=== PATIENT | male | born 2000 | race Hispanic/Latino ===

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

== ENCOUNTER 2020-03-29 08:54 | Emergency (ER) | payer MEDICAID | END 2020-03-29 09:15 | disposition home or self-care (01) | LOC: ERS 08:54 | DX: S00.01XA Abrasion of scalp, initial encounter (principal); J45.909 Unspecified asthma, uncomplicated; F31.9 Bipolar disorder, unspecified; F90.9 Attention-deficit hyperactivity disorder, unspecified type; V49.9XXA Car occupant (driver) (passenger) injured in unspecified traffic accident, initial encounter | CPT/HCPCS: 99284 ==

== ENCOUNTER 2022-09-19 03:56 | Inpatient (IN) | payer MEDICAID, OTHER ==
[2022-09-19] MEDS ORDERED: Rocuronium Bromide 10 MG/ML (10ML VIAL) ONE ×2 (04:01→04:03)
[2022-09-19] MEDS ORDERED: Boostrix 0.5 ML (Tdap) VIAL (>/=7 yrs of age) ONE (04:02)
[2022-09-19] MEDS ORDERED: Tranexamic Acid 1,000 MG/10 ML VIAL ONE (04:02)
[2022-09-19] MEDS ORDERED: EPINEPHrine 1 MG/10 ML Abboject SYRINGE ONE (04:03)
[2022-09-19] MEDS ORDERED: Sodium Bicarb 50 MEQ/50 ML Abboject 8.4% SYRINGE ONE (04:03)
[2022-09-19] MEDS ORDERED: CEFAZOLIN 2 GM VIAL ONE (04:06)
[2022-09-19] MEDS ORDERED: Calcium Chloride 1 GM/10 ML Abboject SYRINGE ONE (04:29)
[2022-09-19] MEDS ORDERED: FENTANYL 50 MCG/ML 1 ML VIAL ONE (04:48)
[2022-09-19 04:52] LABS: ALT (SGPT) 108 U/L (8-55); AST (SGOT) 97 U/L (5-34); Albumin 3.1 g/dL (3.5-5.0); Alkaline Phosphatase 66 U/L (40-110); BUN (Urea Nitrogen) 13 mg/dL (8.9-20.6); Calc. Creatinine Clearance 0 mL/min (70-130); Calcium 9.1 mg/dL (7.8-10.44); Chloride 113 mmol/L (98-107); Estimated GFR 78; Globulin 2.4 g/dL (2.4-3.5); Glucose 253 mg/dL (70-105); Potassium 3.7 mmol/L (3.5-5.1); Protein, Total 5.5 g/dL (6.0-8.3); Sodium 149 mmol/L (136-145)
[2022-09-19 04:53] LABS: INR-International Normal Ratio 2.1; Prothrombin Time 24.4 sec (12.0-14.7)
[2022-09-19 04:55] LABS: Bilirubin, Total 0.4 mg/dL (0.2-1.2); Carbon Dioxide Less than 8 mmol/L (22-29); PTT 72.6 sec (22.9-36.1)
[2022-09-19 04:59] LABS: Hemoglobin 14.4 g/dL (14.0-18.0); Mean Corpuscular HGB CONC 30.7 g/dL (32.0-36.0); Mean Corpuscular Hemoglobin 30.4 pg (27.0-31.0); Mean Corpuscular Volume 98.9 fl (78.0-98.0); Mean Platelet Volume 11.2 fL (7.4-10.4); Platelet Count 141 10x3/uL (130-400); RBC Distribution Width 13.5 % (11.5-14.5); Red Blood Cell (RBC) Count 4.76 mill/uL (4.70-6.10); White Blood Cell (WBC) Count 10.5 10x3/uL (4.8-10.8)
[2022-09-19 04:59] LABS: Bilirubin Negative (Negative); Blood, Urine Negative (Negative); Clarity Clear (Clear); Glucose, Urine (Dipstick) Normal (Negative); Ketone, Urine Negative (Negative); Leukocyte Negative Leu/uL (Negative); Nitrite Negative (Negative); Protein, Urine (Dipstick) 20 mg/dL (Neg-Trace); Specific Gravity, Urine 1.031 (1.002-1.036)
[2022-09-19] MEDS ORDERED: Fentanyl 250 MCG/5 ML VIAL ONE (04:59)
[2022-09-19] MEDS ORDERED: Midazolam HCl 2 mg/2 ml Vial ONE ×2 (04:59→07:09)
[2022-09-19 05:06] LABS: Calcium, Ionized (venous) 1.17 mmol/L (1.16-1.32); Chloride (VBG) 112 mmol/L (98-106); Hemoglobin (Hb) 16.8 g/dL (13.2-17.3); Potassium (VBG) 3.73 mmol/L (3.70-5.30); Sodium 149.5 mmol/L (133-146)
[2022-09-19 05:07] LABS: pH (venous) 6.73 (7.32-7.43)
[2022-09-19 05:08] LABS: Actual Bicarbonate (HCO3v) 5 mEq/L (22-28); Base Excess -31.8 mEq/L (-2.0 to +3.0)
[2022-09-19] MEDS ORDERED: Phenylephrine 10 MG/ML VIAL ONE ×2 (05:10→06:58)
[2022-09-19] MEDS ORDERED: ePHEDrine 50 MG/ML VIAL ONE (05:10)
[2022-09-19 05:23] LABS: Analyzer IN Cardio ER; Base Excess (BEa) -25.9 mEq/L (-2.0 to +3.0); CO2 Tension 57.9 mmHg (35.0-45.0); Calcium, Ionized (arterial) 1.01 mmol/L (1.12-1.30); Carboxyhemoglobin (COHb) 0.3 gm% (0.0-3.0); Hemoglobin (Hb) 11.9 g/dL (14.0-18.0); O2 Tension (PaO2), arterial 148.2 mmHg (80.0-100.0); Potassium - ABG Lab 4.51 mmol/L (3.70-5.30)
[2022-09-19 05:25] LABS: ALV-art Gradient 492.425 mmHg (0-20); Actual Bicarbonate (HCO3a) 8.7 mEq/L (22-28); Puncture Site LRA
[2022-09-19 05:29] LABS: Band 5 % (5-11); Lymphocytes 63 % (21-51); MDiff Complete? YES; Monocytes 5 % (0-10); Neutrophil 21 % (42-75); Reactive Lymphocytes 6 % (0-10)
[2022-09-19] MEDS ORDERED: Sodium Bicarb 50 MEQ/50 ML VIAL ONE (05:55)
[2022-09-19] MEDS ORDERED: Insulin Regular 300 UNITS/3 ML VIAL SC PRN (06:08)
[2022-09-19] MEDS ORDERED: TETANUS, DIPHTHERIA TOX,ADULT (TDVAX) 0.5 ML VIAL IM ONE (06:08)
[2022-09-19] MEDS ORDERED: Dextrose 50% Abboject 50 ML SYRINGE SLOW IVP PRN (06:08)
[2022-09-19] MEDS ORDERED: Dextrose 5% in Water 1,000 ML IV PRN (06:08)
[2022-09-19] MEDS ORDERED: Ventilator Sedation Protocol 1 EACH FS SCH (06:15)
[2022-09-19] MEDS ORDERED: Piperacillin/Tazobactam 3.375 GM in Sodium Chloride 0.9% 100 ML IVPB SCH ×2 (06:15→07:15)
[2022-09-19 06:20] LABS: #Lymphocytes 3.9 thou/uL (1.20-3.40); #Monocytes 0.2 thou/uL (0.11-0.59); #Neutrophils 5.9 thou/uL (1.40-6.50); %Basophils 0.1 % (0.0-1.0); %Eosinophils 9.4 % (0.0-10.0); %Lymphocytes 35.2 % (21.0-51.0); %Monocytes 1.9 % (0.0-10.0); %Neutrophils 53.4 % (42.0-75.0); Hemoglobin 11.6 g/dL (14.0-18.0); Mean Corpuscular HGB CONC 33.5 g/dL (32.0-36.0); Mean Corpuscular Volume 92.6 fl (78.0-98.0); Mean Platelet Volume 8.1 fL (7.4-10.4); Platelet Count 130 10x3/uL (130-400); RBC Distribution Width 13.8 % (11.5-14.5); Red Blood Cell (RBC) Count 3.74 mill/uL (4.70-6.10)
[2022-09-19 06:26] LABS: INR-International Normal Ratio 1.4; Prothrombin Time 17.7 sec (12.0-14.7)
[2022-09-19 06:27] LABS: PTT 44.6 sec (22.9-36.1)
[2022-09-19] MEDS ORDERED: Propofol 1,000 MG/100 ML VIAL IV PRN (06:30)
[2022-09-19] MEDS ORDERED: Morphine CADD 100 ML IVPB SCH (06:30)
[2022-09-19] MEDS ORDERED: Sodium Chloride 0.9% 1,000 ML IV SCH (06:30)
[2022-09-19 06:36] LABS: Anion Gap 18 mmol/L (10-20); BUN (Urea Nitrogen) 14 mg/dL (8.9-20.6); Calc. Creatinine Clearance 0 mL/min (70-130); Calcium 8.4 mg/dL (7.8-10.44); Carbon Dioxide 30 mmol/L (22-29); Chloride 106 mmol/L (98-107); Estimated GFR 75; Glucose 331 mg/dL (70-105); Sodium 150 mmol/L (136-145)
[2022-09-19 06:41] LABS: Amphetamine Not Detected (NotDetected); Barbiturates Screen Not Detected (NotDetected); Benzodiazepine Screen Not Detected (NotDetected); Cocaine Metabolite Screen Not Detected (NotDetected); Methadone Not Detected (NotDetected); Methamphetamine Not Detected (NotDetected); Opiate Screen Not Detected (NotDetected); Oxycodone Screen Not Detected (NotDetected); Phencyclidine (PCP) Not Detected (NotDetected); THC/Cannabinoid Screen Detected (NotDetected); Tricyclic Screen Not Detected (NotDetected)
[2022-09-19 06:47] LABS: Potassium 3.8 mmol/L (3.5-5.1)
[2022-09-19] MEDS ORDERED: HYDROmorphone 2 MG/ML VIAL ONE (07:09)
[2022-09-19] MEDS ORDERED: Albuterol Sulfate HFA (OR ONLY) ONE (07:20)
[2022-09-19] MEDS ORDERED: Lactated Ringer's 1,000 ML IV SCH ×2 (07:45→18:00)
[2022-09-19 08:24] LABS: Actual Bicarbonate (HCO3a) 27.9 mEq/L (22-28); Base Excess (BEa) 0.9 mEq/L (-2.0 to +3.0); CO2 Tension 54.7 mmHg (35.0-45.0); Calcium, Ionized (arterial) 1.21 mmol/L (1.12-1.30); Carboxyhemoglobin (COHb) 0.3 gm% (0.0-3.0); O2 Tension (PaO2), arterial 84.6 mmHg (80.0-100.0); pH, Arterial 7.33 (7.35-7.45)
[2022-09-19 08:26] LABS: ALV-art Gradient 274.825 mmHg (0-20); Potassium - ABG Lab 2.62 mmol/L (3.70-5.30); Puncture Site Arterial Line
[2022-09-19 08:36] LABS: Hemoglobin 12.6 g/dL (14.0-18.0); Mean Corpuscular HGB CONC 34.9 g/dL (32.0-36.0); Mean Corpuscular Hemoglobin 31.9 pg (27.0-31.0); Mean Corpuscular Volume 91.4 fl (78.0-98.0); Mean Platelet Volume 8.6 fL (7.4-10.4); Platelet Count 142 10x3/uL (130-400); RBC Distribution Width 13.6 % (11.5-14.5); Red Blood Cell (RBC) Count 3.95 mill/uL (4.70-6.10); White Blood Cell (WBC) Count 13.1 10x3/uL (4.8-10.8)
[2022-09-19] MEDS ORDERED: Albumin 5% 500 ML ONE (08:40)
[2022-09-19] MEDS ORDERED: Lactated Ringer's 500 ML IV SCH ×3 (08:45→15:30)
[2022-09-19 08:47] LABS: Lactic Acid 3.1 mmol/L (0.5-2.2)
[2022-09-19 08:52] LABS: Anion Gap 12 mmol/L (10-20); BUN (Urea Nitrogen) 14 mg/dL (8.9-20.6); Calc. Creatinine Clearance 0 mL/min (70-130); Calcium 8.4 mg/dL (7.8-10.44); Carbon Dioxide 24 mmol/L (22-29); Chloride 113 mmol/L (98-107); Estimated GFR 83; Glucose 95 mg/dL (70-105); Magnesium 2.6 mg/dL (1.6-2.6); Phosphorus 3.3 mg/dL (2.3-4.7); Potassium 2.7 mmol/L (3.5-5.1); Sodium 146 mmol/L (136-145)
[2022-09-19 08:59] LABS: Band 45 % (5-11); Lymphocytes 13 % (21-51); MDiff Complete? YES; Metamyelocyte 2 % (0-0); Monocytes 4 % (0-10); Neutrophil 30 % (42-75); Platelet Morphology Comment Appears Adequate; RBC Morphology Normal; Reactive Lymphocytes 6 % (0-10)
[2022-09-19] MEDS ORDERED: Morphine 4 MG/ML VIAL SLOW IVP PRN (09:21)
[2022-09-19] MEDS: Lactated Ringer's 1,000 ML IV SCH ×3 (09:26→21:35)
[2022-09-19] MEDS: Potassium Chloride 20 MEQ in Premix Bag 1 BAG IVPB SCH ×2 (09:50→11:00)
[2022-09-19] MEDS: Famotidine/PF 20 mg/2ml Vial SLOW IVP SCH ×2 (09:53→20:15)
[2022-09-19 10:24] LABS: Actual Bicarbonate (HCO3a) 27.2 mEq/L (22-28); Base Excess (BEa) 2.8 mEq/L (-2.0 to +3.0); Calcium, Ionized (arterial) 1.14 mmol/L (1.12-1.30); Carboxyhemoglobin (COHb) 0.3 gm% (0.0-3.0); Hemoglobin (Hb) 11.7 g/dL (14.0-18.0); O2 Tension (PaO2), arterial 246.5 mmHg (80.0-100.0); Potassium - ABG Lab 2.97 mmol/L (3.70-5.30); pH, Arterial 7.44 (7.35-7.45)
[2022-09-19 10:26] LABS: Puncture Site Arterial Line
[2022-09-19 11:44] LABS: SARS-CoV-2 NAA Rapid Test Not Detected (NotDetected)
[2022-09-19] MEDS ORDERED: FENTANYL 50 MCG/ML 1 ML VIAL SLOW IVP PRN (13:06)
[2022-09-19] MEDS: Piperacillin/Tazobactam 3.375 GM in Sodium Chloride 0.9% 100 ML IVPB SCH ×2 (13:33→20:15)
[2022-09-19 14:33] LABS: Hemoglobin 11.1 g/dL (14.0-18.0); Mean Corpuscular HGB CONC 36.3 g/dL (32.0-36.0); Mean Corpuscular Hemoglobin 32.9 pg (27.0-31.0); Mean Corpuscular Volume 90.7 fl (78.0-98.0); Mean Platelet Volume 8.7 fL (7.4-10.4); Platelet Count 107 10x3/uL (130-400); RBC Distribution Width 13.6 % (11.5-14.5); Red Blood Cell (RBC) Count 3.36 mill/uL (4.70-6.10); White Blood Cell (WBC) Count 11.4 10x3/uL (4.8-10.8)
[2022-09-19 14:43] LABS: Anion Gap 13 mmol/L (10-20); BUN (Urea Nitrogen) 13 mg/dL (8.9-20.6); Calc. Creatinine Clearance 0 mL/min (70-130); Carbon Dioxide 24 mmol/L (22-29); Chloride 113 mmol/L (98-107); Estimated GFR 83; Glucose 101 mg/dL (70-105); Phosphorus 2.9 mg/dL (2.3-4.7); Potassium 3.7 mmol/L (3.5-5.1); Sodium 146 mmol/L (136-145)
[2022-09-19 14:44] LABS: Magnesium 1.9 mg/dL (1.6-2.6)
[2022-09-19 14:53] LABS: Band 31 % (5-11); Lymphocytes 8 % (21-51); MDiff Complete? YES; Metamyelocyte 9 % (0-0); Monocytes 6 % (0-10); Myelocyte 2 % (0-0); Neutrophil 42 % (42-75); Platelet Morphology Comment Appears Decreased; Polychromasia SLIGHT = 2-3 cells (100X) (0-2/hpf); Reactive Lymphocytes 2 % (0-10)
[2022-09-19] MEDS ORDERED: Iopamidol-370 76% 500 ML 1 ML ONE (14:55)
[2022-09-19] MEDS: FENTANYL 50 MCG/ML 1 ML VIAL SLOW IVP PRN ×2 (15:35→20:15)
[2022-09-19] MEDS ORDERED: Magnesium 2 GM/50 ML(in water) 2 GM in Premix Bag 1 BAG IVPB SCH ×2 (16:45→21:00)
[2022-09-19] MEDS ORDERED: Hydrocortisone Sod Succ/PF 100 mg/2 ml Vial IVP SCH (16:45)
[2022-09-19] MEDS: Ondansetron PF 4 MG/2 ML Vial IVP PRN (16:51)
[2022-09-19 20:22] LABS: Hemoglobin 10.3 g/dL (14.0-18.0); Mean Corpuscular HGB CONC 35.2 g/dL (32.0-36.0); Mean Corpuscular Hemoglobin 31.9 pg (27.0-31.0); Mean Corpuscular Volume 90.6 fl (78.0-98.0); Mean Platelet Volume 9.5 fL (7.4-10.4); Platelet Count 97 10x3/uL (130-400); RBC Distribution Width 13.6 % (11.5-14.5); Red Blood Cell (RBC) Count 3.22 mill/uL (4.70-6.10); White Blood Cell (WBC) Count 10.5 10x3/uL (4.8-10.8)
[2022-09-19 20:31] LABS: INR-International Normal Ratio 1.5; Prothrombin Time 18.6 sec (12.0-14.7)
[2022-09-19 20:32] LABS: PTT 40.2 sec (22.9-36.1)
[2022-09-19 20:33] LABS: Anion Gap 12 mmol/L (10-20); BUN (Urea Nitrogen) 14 mg/dL (8.9-20.6); Calc. Creatinine Clearance 123 mL/min (70-130); Calcium 7.5 mg/dL (7.8-10.44); Carbon Dioxide 25 mmol/L (22-29); Chloride 111 mmol/L (98-107); Estimated GFR 76; Glucose 99 mg/dL (70-105); Magnesium 1.7 mg/dL (1.6-2.6); Potassium 4.2 mmol/L (3.5-5.1); Sodium 144 mmol/L (136-145)
[2022-09-19 20:34] LABS: Lactic Acid 4.4 mmol/L (0.5-2.2)
[2022-09-19 20:40] LABS: Band 31 % (5-11); Lymphocytes 9 % (21-51); MDiff Complete? YES; Monocytes 3 % (0-10); Neutrophil 57 % (42-75); Platelet Morphology Comment Appears Decreased
[2022-09-19 20:47] LABS: CK (CPK) 5727 U/L (30-200)
[2022-09-19] MEDS ORDERED: Midazolam In 0.9 % NaCl/PF 100 ML IVPB SCH (21:00)
[2022-09-19] MEDS ORDERED: Midazolam HCl 100 MG in Premix Bag 1 BAG IVPB SCH (21:00)
[2022-09-19] MEDS ORDERED: Midazolam HCl 100 MG in Admixture Fee 1 EACH IVPB SCH (21:00)
[2022-09-19] MEDS ORDERED: Calcium Chloride 13.6 MEQ in Sodium Chloride 0.9% 100 ML IVPB SCH (21:15)
[2022-09-19] MEDS: Hydrocortisone Sod Succ/PF 100 mg/2 ml Vial IVP SCH (21:30)
[2022-09-19] MEDS: Acetaminophen 650 MG Suppository PR PRN (22:45)
[2022-09-20] MEDS: Piperacillin/Tazobactam 3.375 GM in Sodium Chloride 0.9% 100 ML IVPB SCH ×3 (04:24→19:22)
[2022-09-20 05:38] LABS: Lactic Acid 3.3 mmol/L (0.5-2.2)
[2022-09-20 05:55] LABS: CK (CPK) 6555 U/L (30-200)
[2022-09-20 06:03] LABS: Anion Gap 12 mmol/L (10-20); BUN (Urea Nitrogen) 13 mg/dL (8.9-20.6); Band 41 % (5-11); Calc. Creatinine Clearance 133 mL/min (70-130); Carbon Dioxide 22 mmol/L (22-29); Chloride 111 mmol/L (98-107); Estimated GFR 82; Glucose 109 mg/dL (70-105); Lymphocytes 13 % (21-51); MDiff Complete? YES; Magnesium 1.9 mg/dL (1.6-2.6); Mean Corpuscular HGB CONC 35.1 g/dL (32.0-36.0); Mean Corpuscular Hemoglobin 32.5 pg (27.0-31.0); Mean Corpuscular Volume 92.5 fl (78.0-98.0); Monocytes 2 % (0-10); Neutrophil 44 % (42-75); Phosphorus 3.8 mg/dL (2.3-4.7); Platelet Count 84 10x3/uL (130-400); Platelet Morphology Comment Appears Decreased; Potassium 4.2 mmol/L (3.5-5.1); RBC Distribution Width 13.3 % (11.5-14.5); Red Blood Cell (RBC) Count 3.09 mill/uL (4.70-6.10); Sodium 141 mmol/L (136-145); White Blood Cell (WBC) Count 10.9 10x3/uL (4.8-10.8)
[2022-09-20] MEDS: Hydrocortisone Sod Succ/PF 100 mg/2 ml Vial IVP SCH ×3 (06:09→22:37)
[2022-09-20] MEDS: Lactated Ringer's 1,000 ML IV SCH ×4 (06:09→19:22)
[2022-09-20 07:13] LABS: Actual Bicarbonate (HCO3a) 22.5 mEq/L (22-28); Base Excess (BEa) -1.2 mEq/L (-2.0 to +3.0); CO2 Tension 33.7 mmHg (35.0-45.0); Calcium, Ionized (arterial) 1.12 mmol/L (1.12-1.30); Carboxyhemoglobin (COHb) 0.3 gm% (0.0-3.0); Hemoglobin (Hb) 10.5 g/dL (14.0-18.0); O2 Tension (PaO2), arterial 79.5 mmHg (80.0-100.0); Potassium - ABG Lab 3.97 mmol/L (3.70-5.30); pH, Arterial 7.44 (7.35-7.45)
[2022-09-20 07:27] LABS: ALV-art Gradient 163.575 mmHg (0-20); Puncture Site Arterial Line
[2022-09-20] MEDS: FENTANYL 50 MCG/ML 1 ML VIAL SLOW IVP PRN ×8 (07:55→23:40)
[2022-09-20] MEDS ORDERED: Magnesium 2 GM/50 ML(in water) 2 GM in Premix Bag 1 BAG IVPB SCH (08:15)
[2022-09-20] MEDS: Famotidine/PF 20 mg/2ml Vial SLOW IVP SCH ×2 (09:12→19:22)
[2022-09-20] MEDS ORDERED: Calcium Chloride 1 GM/10 ML Abboject SYRINGE IVP SCH (12:15)
[2022-09-20] MEDS: carBAMazepine 200 MG TAB PER TUBE SCH ×2 (14:34→21:03)
[2022-09-20 16:26] LABS: #Lymphocytes 1.2 thou/uL (1.20-3.40); #Monocytes 0.8 thou/uL (0.11-0.59); #Neutrophils 8.6 thou/uL (1.40-6.50); %Basophils 0.1 % (0.0-1.0); %Eosinophils 0.1 % (0.0-10.0); %Lymphocytes 11.2 % (21.0-51.0); %Monocytes 7.5 % (0.0-10.0); %Neutrophils 81.1 % (42.0-75.0); Hemoglobin 9.1 g/dL (14.0-18.0); Mean Corpuscular HGB CONC 35.2 g/dL (32.0-36.0); Mean Corpuscular Volume 93.6 fl (78.0-98.0); Mean Platelet Volume 10.1 fL (7.4-10.4); Platelet Count 62 10x3/uL (130-400); RBC Distribution Width 13.3 % (11.5-14.5); Red Blood Cell (RBC) Count 2.75 mill/uL (4.70-6.10); White Blood Cell (WBC) Count 10.6 10x3/uL (4.8-10.8)
[2022-09-20 16:51] LABS: Anion Gap 14 mmol/L (10-20); BUN (Urea Nitrogen) 13 mg/dL (8.9-20.6); Calc. Creatinine Clearance 137 mL/min (70-130); Calcium 8.7 mg/dL (7.8-10.44); Carbon Dioxide 17 mmol/L (22-29); Chloride 113 mmol/L (98-107); Estimated GFR 84; Glucose 98 mg/dL (70-105); Magnesium 2.3 mg/dL (1.6-2.6); Potassium 4.4 mmol/L (3.5-5.1); Sodium 140 mmol/L (136-145)
[2022-09-20] MEDS ORDERED: Sodium Chloride 0.9% 1,000 ML IV SCH (17:00)
[2022-09-20] MEDS: Acetaminophen 650 MG Suppository PR PRN (17:06)
[2022-09-20] MEDS: Ondansetron PF 4 MG/2 ML Vial IVP PRN (19:22)
[2022-09-20] MEDS: Acetaminophen 650 MG Suppository PR SCH (22:37)
[2022-09-21] MEDS: FENTANYL 50 MCG/ML 1 ML VIAL SLOW IVP PRN ×7 (00:28→16:47)
[2022-09-21] MEDS: Piperacillin/Tazobactam 3.375 GM in Sodium Chloride 0.9% 100 ML IVPB SCH ×3 (03:52→19:49)
[2022-09-21] MEDS: Lactated Ringer's 1,000 ML IV SCH ×4 (03:54→19:50)
[2022-09-21 05:14] LABS: Lactic Acid 2.3 mmol/L (0.5-2.2)
[2022-09-21 05:23] LABS: ALT (SGPT) 1176 U/L (8-55); AST (SGOT) 685 U/L (5-34); Albumin 2.7 g/dL (3.5-5.0); Alkaline Phosphatase 33 U/L (40-110); Anion Gap 13 mmol/L (10-20); BUN (Urea Nitrogen) 12 mg/dL (8.9-20.6); CK (CPK) 3690 U/L (30-200); Calc. Creatinine Clearance 147 mL/min (70-130); Calcium 8.6 mg/dL (7.8-10.44); Carbon Dioxide 20 mmol/L (22-29); Chloride 110 mmol/L (98-107); Estimated GFR 92; Globulin 2.4 g/dL (2.4-3.5); Glucose 115 mg/dL (70-105); Magnesium 2.2 mg/dL (1.6-2.6); Potassium 4.7 mmol/L (3.5-5.1); Protein, Total 5.1 g/dL (6.0-8.3); Sodium 138 mmol/L (136-145)
[2022-09-21] MEDS: Hydrocortisone Sod Succ/PF 100 mg/2 ml Vial IVP SCH ×3 (05:31→18:18)
[2022-09-21] MEDS: Acetaminophen 650 MG Suppository PR SCH (05:41)
[2022-09-21] MEDS: Famotidine/PF 20 mg/2ml Vial SLOW IVP SCH ×2 (07:49→19:49)
[2022-09-21 08:26] LABS: Actual Bicarbonate (HCO3a) 22.1 mEq/L (22-28); Base Excess (BEa) -0.9 mEq/L (-2.0 to +3.0); CO2 Tension 30.4 mmHg (35.0-45.0); Carboxyhemoglobin (COHb) 0.3 gm% (0.0-3.0); Hemoglobin (Hb) 9.2 g/dL (14.0-18.0); O2 Tension (PaO2), arterial 148.4 mmHg (80.0-100.0); Potassium - ABG Lab 3.96 mmol/L (3.70-5.30); pH, Arterial 7.48 (7.35-7.45)
[2022-09-21 08:33] LABS: Puncture Site LRA
[2022-09-21 09:07] LABS: INR-International Normal Ratio 1.2; PTT 29.1 sec (22.9-36.1); Prothrombin Time 16.1 sec (12.0-14.7)
[2022-09-21] MEDS ORDERED: Midazolam HCl 5 mg/5 ml Vial ONE (10:12)
[2022-09-21] MEDS ORDERED: Fentanyl 250 MCG/5 ML VIAL ONE (10:12)
[2022-09-21 10:35] LABS: Band 25 % (5-11); Hemoglobin 8.7 g/dL (14.0-18.0); Lymphocytes 10 % (21-51); MDiff Complete? YES; Mean Corpuscular Hemoglobin 31.2 pg (27.0-31.0); Mean Corpuscular Volume 94.4 fl (78.0-98.0); Mean Platelet Volume 10.1 fL (7.4-10.4); Monocytes 8 % (0-10); Neutrophil 56 % (42-75); Platelet Count 87 10x3/uL (130-400); Platelet Morphology Comment Appears Decreased; Polychromasia SLIGHT = 2-3 cells (100X) (0-2/hpf); RBC Distribution Width 13.1 % (11.5-14.5); Red Blood Cell (RBC) Count 2.78 mill/uL (4.70-6.10); White Blood Cell (WBC) Count 10.3 10x3/uL (4.8-10.8)
[2022-09-21] MEDS ORDERED: Rocuronium Bromide 10 MG/ML (10ML VIAL) ONE (10:45)
[2022-09-21] MEDS ORDERED: Dexamethasone 20 MG/5 ML VIAL ONE (10:45)
[2022-09-21] MEDS ORDERED: Ondansetron ORAL SOLN. 4 MG/5 ML UDCUP ONE (10:45)
[2022-09-21] MEDS ORDERED: Neomycin-Polymyxin 1 ML AMP ONE (11:20)
[2022-09-21 16:48] VITALS: BMI 38.9
[2022-09-21] MEDS ORDERED: diphenhydrAMINE 25 MG CAP PO PRN (17:39)
[2022-09-21] MEDS ORDERED: Zolpidem Tartrate 5 MG TAB PO PRN (17:39)
[2022-09-21] MEDS ORDERED: Promethazine HCl 25 MG/ML VIAL IM PRN (17:39)
[2022-09-21] MEDS ORDERED: Naloxone HCl 0.4 mg/ml Vial IV PRN (17:39)
[2022-09-21] MEDS ORDERED: diphenhydrAMINE 50 MG/ML VIAL IM PRN (17:39)
[2022-09-21] MEDS ORDERED: Communication Order-Pharmacy FS SCH (17:45)
[2022-09-21] MEDS: HYDROmorphone 10 mg/100 ml CADD IVPB PRN (18:19)
[2022-09-21] MEDS: Ketorolac Tromethamine 30 MG/ML VIAL IVP SCH ×2 (18:19→23:13)
[2022-09-21 19:55] LABS: Hemoglobin 10.3 g/dL (14.0-18.0); Mean Corpuscular HGB CONC 33.3 g/dL (32.0-36.0); Mean Corpuscular Hemoglobin 32.4 pg (27.0-31.0); Mean Corpuscular Volume 97.3 fl (78.0-98.0); Mean Platelet Volume 10.1 fL (7.4-10.4); Platelet Count 107 10x3/uL (130-400); RBC Distribution Width 13.4 % (11.5-14.5); Red Blood Cell (RBC) Count 3.17 mill/uL (4.70-6.10); White Blood Cell (WBC) Count 11.9 10x3/uL (4.8-10.8)
[2022-09-21 20:16] LABS: Band 28 % (5-11); Lymphocytes 7 % (21-51); MDiff Complete? YES; Monocytes 4 % (0-10); Neutrophil 61 % (42-75); Platelet Morphology Comment Appears Decreased; RBC Morphology Normal
[2022-09-21] MEDS ORDERED: Hydrocortisone Sod Succ/PF 100 mg/2 ml Vial IVP SCH (21:00)
[2022-09-21 21:50] LABS: Anion Gap 13 mmol/L (10-20); BUN (Urea Nitrogen) 12 mg/dL (8.9-20.6); Calc. Creatinine Clearance 196 mL/min (70-130); Calcium 8.3 mg/dL (7.8-10.44); Carbon Dioxide 19 mmol/L (22-29); Chloride 108 mmol/L (98-107); Estimated GFR 126; Glucose 123 mg/dL (70-105); Magnesium 1.8 mg/dL (1.6-2.6); Phosphorus 2.2 mg/dL (2.3-4.7); Potassium 4.1 mmol/L (3.5-5.1); Sodium 136 mmol/L (136-145)
[2022-09-21] MEDS ORDERED: Magnesium 2 GM/50 ML(in water) 2 GM in Premix Bag 1 BAG IVPB SCH (22:30)
[2022-09-21] MEDS ORDERED: Sodium Phosphate 30 MMOL in Sodium Chloride 0.9% 250 ML 250 ML IVPB SCH (22:45)
[2022-09-22] MEDS: diphenhydrAMINE 50 MG/ML VIAL IVP PRN (03:28)
[2022-09-22] MEDS: Piperacillin/Tazobactam 3.375 GM in Sodium Chloride 0.9% 100 ML IVPB SCH ×3 (03:28→22:51)
[2022-09-22] MEDS: Lactated Ringer's 1,000 ML IV SCH ×3 (04:22→17:11)
[2022-09-22 04:49] LABS: ALT (SGPT) 696 U/L (8-55); AST (SGOT) 208 U/L (5-34); Albumin 2.8 g/dL (3.5-5.0); Alkaline Phosphatase 39 U/L (40-110); Anion Gap 12 mmol/L (10-20); BUN (Urea Nitrogen) 13 mg/dL (8.9-20.6); Bilirubin, Total 1.1 mg/dL (0.2-1.2); CK (CPK) 2944 U/L (30-200); Calc. Creatinine Clearance 196 mL/min (70-130); Calcium 8.2 mg/dL (7.8-10.44); Carbon Dioxide 23 mmol/L (22-29); Chloride 109 mmol/L (98-107); Estimated GFR 126; Globulin 2.4 g/dL (2.4-3.5); Glucose 136 mg/dL (70-105); Magnesium 2.3 mg/dL (1.6-2.6); Phosphorus 2.3 mg/dL (2.3-4.7); Potassium 3.7 mmol/L (3.5-5.1); Protein, Total 5.2 g/dL (6.0-8.3); Sodium 140 mmol/L (136-145)
[2022-09-22 05:04] LABS: Band 25 % (5-11); Eosinophils 1 % (0-10); Hemoglobin 8.9 g/dL (14.0-18.0); Lymphocytes 8 % (21-51); MDiff Complete? YES; Mean Corpuscular HGB CONC 33.2 g/dL (32.0-36.0); Mean Corpuscular Hemoglobin 31.5 pg (27.0-31.0); Mean Corpuscular Volume 94.8 fl (78.0-98.0); Mean Platelet Volume 10.6 fL (7.4-10.4); Monocytes 6 % (0-10); Neutrophil 60 % (42-75); Platelet Count 112 10x3/uL (130-400); Platelet Morphology Comment Appears Decreased; RBC Distribution Width 13.1 % (11.5-14.5); Red Blood Cell (RBC) Count 2.81 mill/uL (4.70-6.10)
[2022-09-22] MEDS: Ketorolac Tromethamine 30 MG/ML VIAL IVP SCH ×3 (06:23→17:11)
[2022-09-22] MEDS ORDERED: Lactated Ringer's 1,000 ML IV SCH (08:15)
[2022-09-22] MEDS ORDERED: Potassium Phosphate 30 MMOL in Sodium Chloride 0.9% 250 ML 250 ML IVPB SCH (09:00)
[2022-09-22] MEDS: Divalproex Sodium 250 MG (DR) TAB PO SCH (09:11)
[2022-09-22] MEDS: risperiDONE 1 MG TAB PO SCH (09:11)
[2022-09-22] MEDS: Saccharomyces boulardii 250 MG CAP PO SCH (09:11)
[2022-09-22] MEDS: Famotidine/PF 20 mg/2ml Vial SLOW IVP SCH ×2 (09:11→22:51)
[2022-09-23] MEDS: Ketorolac Tromethamine 30 MG/ML VIAL IVP SCH ×4 (00:37→17:32)
[2022-09-23] MEDS: HYDROmorphone 10 mg/100 ml CADD IVPB PRN (04:36)
[2022-09-23] MEDS: Piperacillin/Tazobactam 3.375 GM in Sodium Chloride 0.9% 100 ML IVPB SCH ×3 (04:43→20:10)
[2022-09-23] MEDS: Lactated Ringer's 1,000 ML IV SCH ×3 (04:43→22:05)
[2022-09-23 06:24] LABS: Hemoglobin 8.7 g/dL (14.0-18.0); Mean Corpuscular HGB CONC 35.2 g/dL (32.0-36.0); Mean Corpuscular Hemoglobin 33.2 pg (27.0-31.0); Mean Corpuscular Volume 94.5 fl (78.0-98.0); Mean Platelet Volume 9.2 fL (7.4-10.4); Platelet Count 172 10x3/uL (130-400); RBC Distribution Width 13.4 % (11.5-14.5); Red Blood Cell (RBC) Count 2.62 mill/uL (4.70-6.10)
[2022-09-23 06:29] LABS: Lactic Acid 0.8 mmol/L (0.5-2.2)
[2022-09-23 06:34] LABS: ALT (SGPT) 419 U/L (8-55); AST (SGOT) 97 U/L (5-34); Albumin 2.8 g/dL (3.5-5.0); Alkaline Phosphatase 48 U/L (40-110); Bilirubin, Direct 0.5 mg/dL (0.1-0.3); Protein, Total 5.2 g/dL (6.0-8.3)
[2022-09-23 06:36] LABS: Anion Gap 14 mmol/L (10-20); BUN (Urea Nitrogen) 20 mg/dL (8.9-20.6); CK (CPK) 2655 U/L (30-200); Calc. Creatinine Clearance 218 mL/min (70-130); Calcium 8.3 mg/dL (7.8-10.44); Carbon Dioxide 24 mmol/L (22-29); Chloride 110 mmol/L (98-107); Estimated GFR 130; Glucose 106 mg/dL (70-105); Magnesium 2.2 mg/dL (1.6-2.6); Phosphorus 2.7 mg/dL (2.3-4.7); Potassium 3.4 mmol/L (3.5-5.1); Sodium 145 mmol/L (136-145)
[2022-09-23 06:49] LABS: Band 26 % (5-11); Lymphocytes 13 % (21-51); MDiff Complete? YES; Metamyelocyte 1 % (0-0); Monocytes 7 % (0-10); Myelocyte 7 % (0-0); Neutrophil 46 % (42-75); White Blood Cell (WBC) Count 12.8 10x3/uL (4.8-10.8)
[2022-09-23] MEDS ORDERED: Potassium Phosphate 30 MMOL in Sodium Chloride 0.9% 250 ML 250 ML IVPB SCH (09:00)
[2022-09-23] MEDS: Divalproex Sodium 250 MG (DR) TAB PO SCH (10:19)
[2022-09-23] MEDS: Saccharomyces boulardii 250 MG CAP PO SCH (10:19)
[2022-09-23] MEDS: risperiDONE 1 MG TAB PO SCH (10:19)
[2022-09-23] MEDS: Famotidine/PF 20 mg/2ml Vial SLOW IVP SCH ×2 (10:19→20:10)
[2022-09-23] MEDS: hydrALAZINE 20 MG/ML VIAL SLOW IVP PRN (17:36)
[2022-09-23] MEDS: Enoxaparin Sodium 30 MG/0.3 ML SYRINGE SC SCH (20:10)
[2022-09-23] MEDS: diphenhydrAMINE 50 MG/ML VIAL IVP PRN (21:35)
[2022-09-24] MEDS: Lactated Ringer's 1,000 ML IV SCH (01:25)
[2022-09-24] MEDS: hydrALAZINE 20 MG/ML VIAL SLOW IVP PRN ×2 (01:30→09:26)
[2022-09-24] MEDS: diphenhydrAMINE 50 MG/ML VIAL IVP PRN (01:35)
[2022-09-24] MEDS: Piperacillin/Tazobactam 3.375 GM in Sodium Chloride 0.9% 100 ML IVPB SCH ×3 (03:58→21:54)
[2022-09-24] MEDS: HYDROmorphone 10 mg/100 ml CADD IVPB PRN (03:58)
[2022-09-24 07:38] LABS: Anion Gap 14 mmol/L (10-20); BUN (Urea Nitrogen) 13 mg/dL (8.9-20.6); Calc. Creatinine Clearance 241 mL/min (70-130); Calcium 8.4 mg/dL (7.8-10.44); Carbon Dioxide 21 mmol/L (22-29); Chloride 106 mmol/L (98-107); Estimated GFR 134; Glucose 102 mg/dL (70-105); Hemoglobin 8.9 g/dL (14.0-18.0); Magnesium 1.8 mg/dL (1.6-2.6); Mean Corpuscular HGB CONC 33.8 g/dL (32.0-36.0); Mean Corpuscular Volume 94.7 fl (78.0-98.0); Mean Platelet Volume 8.7 fL (7.4-10.4); Phosphorus 4.2 mg/dL (2.3-4.7); Platelet Count 230 10x3/uL (130-400); Potassium 3.3 mmol/L (3.5-5.1); RBC Distribution Width 13.7 % (11.5-14.5); Red Blood Cell (RBC) Count 2.79 mill/uL (4.70-6.10); Sodium 138 mmol/L (136-145); White Blood Cell (WBC) Count 15.1 10x3/uL (4.8-10.8)
[2022-09-24 08:18] LABS: Band 27 % (5-11); Eosinophils 1 % (0-10); Lymphocytes 10 % (21-51); MDiff Complete? YES; Metamyelocyte 2 % (0-0); Monocytes 10 % (0-10); Neutrophil 50 % (42-75); Nucleated RBC 2 % (0); Platelet Morphology Comment Appears Adequate; Polychromasia SLIGHT = 2-3 cells (100X) (0-2/hpf)
[2022-09-24] MEDS ORDERED: Magnesium 2 GM/50 ML(in water) 2 GM in Premix Bag 1 BAG IVPB SCH ×2 (09:00→15:30)
[2022-09-24] MEDS: Enoxaparin Sodium 30 MG/0.3 ML SYRINGE SC SCH (09:14)
[2022-09-24] MEDS: Famotidine/PF 20 mg/2ml Vial SLOW IVP SCH ×2 (09:14→21:54)
[2022-09-24] MEDS: Divalproex Sodium 250 MG (DR) TAB PO SCH (09:14)
[2022-09-24] MEDS: Furosemide 20 MG/2 ML VIAL SLOW IVP SCH (09:27)
[2022-09-24 12:59] LABS: CKMB 4.8 ng/mL (0-6.6)
[2022-09-24] MEDS: Potassium Chloride 20 MEQ in Premix Bag 1 BAG IVPB SCH ×2 (13:56→15:41)
[2022-09-24] MEDS ORDERED: Cyclobenzaprine 10 MG TAB PO PRN (14:40)
[2022-09-24] MEDS ORDERED: traMADol HCl 50 MG TAB PO PRN (14:40)
[2022-09-24] MEDS ORDERED: Morphine 4 MG/ML VIAL SLOW IVP PRN (14:43)
[2022-09-24] MEDS ORDERED: Potassium Chloride 20 MEQ TAB PO SCH (15:30)
[2022-09-24] MEDS: risperiDONE 1 MG TAB PO SCH (15:39)
[2022-09-24] MEDS: Saccharomyces boulardii 250 MG CAP PO SCH (15:39)
[2022-09-24 16:51] LABS: Anion Gap 18 mmol/L (10-20); BUN (Urea Nitrogen) 14 mg/dL (8.9-20.6); Calc. Creatinine Clearance 236 mL/min (70-130); Calcium 8.5 mg/dL (7.8-10.44); Carbon Dioxide 18 mmol/L (22-29); Chloride 109 mmol/L (98-107); Estimated GFR 133; Glucose 106 mg/dL (70-105); Magnesium 1.9 mg/dL (1.6-2.6); Phosphorus 3.7 mg/dL (2.3-4.7); Potassium 4.8 mmol/L (3.5-5.1); Sodium 140 mmol/L (136-145)
[2022-09-24] MEDS ORDERED: Labetalol HCl 100 MG/20 ML VIAL SLOW IVP PRN (16:56)
[2022-09-24] MEDS ORDERED: traMADol HCl 50 MG TAB PO SCH (18:00)
[2022-09-24] MEDS: Acetaminophen 500 MG TAB PO SCH (18:01)
[2022-09-24] MEDS: traMADol HCl 50 MG TAB PO SCH (18:02)
[2022-09-24] MEDS: Ketorolac Tromethamine 30 MG/ML VIAL IVP SCH (18:02)
[2022-09-24] MEDS: Apixaban 5 MG TAB PO SCH (21:54)
[2022-09-25] MEDS: Ketorolac Tromethamine 30 MG/ML VIAL IVP SCH ×4 (00:39→18:27)
[2022-09-25] MEDS: traMADol HCl 50 MG TAB PO SCH ×5 (00:40→23:55)
[2022-09-25] MEDS: Acetaminophen 500 MG TAB PO SCH ×5 (00:41→23:54)
[2022-09-25] MEDS: Piperacillin/Tazobactam 3.375 GM in Sodium Chloride 0.9% 100 ML IVPB SCH ×3 (05:39→21:16)
[2022-09-25] MEDS: Furosemide 20 MG/2 ML VIAL SLOW IVP SCH (08:46)
[2022-09-25] MEDS: Apixaban 5 MG TAB PO SCH ×2 (08:47→21:17)
[2022-09-25] MEDS: Divalproex Sodium 250 MG (DR) TAB PO SCH (08:47)
[2022-09-25] MEDS: Saccharomyces boulardii 250 MG CAP PO SCH (08:47)
[2022-09-25] MEDS: Famotidine 20 MG TAB PO SCH ×2 (08:47→21:17)
[2022-09-25] MEDS: risperiDONE 1 MG TAB PO SCH (08:47)
[2022-09-25 15:26] LABS: Hemoglobin 8.9 g/dL (14.0-18.0); Mean Corpuscular HGB CONC 33.9 g/dL (32.0-36.0); Mean Corpuscular Hemoglobin 32.6 pg (27.0-31.0); Mean Corpuscular Volume 96.1 fl (78.0-98.0); Mean Platelet Volume 9.1 fL (7.4-10.4); Platelet Count 285 10x3/uL (130-400); RBC Distribution Width 14.1 % (11.5-14.5); Red Blood Cell (RBC) Count 2.73 mill/uL (4.70-6.10)
[2022-09-25 15:32] LABS: Anion Gap 16 mmol/L (10-20); BUN (Urea Nitrogen) 16 mg/dL (8.9-20.6); Calc. Creatinine Clearance 227 mL/min (70-130); Calcium 8.1 mg/dL (7.8-10.44); Carbon Dioxide 18 mmol/L (22-29); Chloride 107 mmol/L (98-107); Estimated GFR 132; Glucose 90 mg/dL (70-105); Magnesium 1.9 mg/dL (1.6-2.6); Phosphorus 3.3 mg/dL (2.3-4.7); Potassium 3.5 mmol/L (3.5-5.1); Sodium 137 mmol/L (136-145)
[2022-09-25 15:36] LABS: Troponin I 0.145 ng/mL (< 0.028)
[2022-09-25 15:48] LABS: Band 17 % (5-11); Eosinophils 3 % (0-10); Lymphocytes 13 % (21-51); MDiff Complete? YES; Metamyelocyte 5 % (0-0); Monocytes 3 % (0-10); Myelocyte 2 % (0-0); Neutrophil 57 % (42-75); Nucleated RBC 1 % (0); Platelet Morphology Comment Appears Adequate; Polychromasia MODERATE = 3-4 cells (100X) (0-2/hpf); White Blood Cell (WBC) Count 15.2 10x3/uL (4.8-10.8)
[2022-09-25] MEDS ORDERED: Furosemide 20 MG/2 ML VIAL SLOW IVP SCH (16:00)
[2022-09-25] MEDS ORDERED: Potassium Chloride 20 MEQ TAB PO SCH (16:00)
[2022-09-25] MEDS ORDERED: Piperacillin/Tazobactam 3.375 GM in Sodium Chloride 0.9% 100 ML IVPB SCH (20:00)
[2022-09-26] MEDS: traMADol HCl 50 MG TAB PO SCH ×3 (05:26→18:58)
[2022-09-26] MEDS: Acetaminophen 500 MG TAB PO SCH ×3 (05:26→18:57)
[2022-09-26] MEDS: Piperacillin/Tazobactam 3.375 GM in Sodium Chloride 0.9% 100 ML IVPB SCH (05:27)
[2022-09-26 08:10] LABS: Hemoglobin 9.9 g/dL (14.0-18.0); Mean Corpuscular HGB CONC 33.4 g/dL (32.0-36.0); Mean Corpuscular Hemoglobin 31.8 pg (27.0-31.0); Mean Corpuscular Volume 95.3 fl (78.0-98.0); Mean Platelet Volume 9.3 fL (7.4-10.4); Platelet Count 329 10x3/uL (130-400); RBC Distribution Width 14.2 % (11.5-14.5); White Blood Cell (WBC) Count 15.4 10x3/uL (4.8-10.8)
[2022-09-26 08:20] LABS: Anion Gap 14 mmol/L (10-20); BUN (Urea Nitrogen) 12 mg/dL (8.9-20.6); Calc. Creatinine Clearance 262 mL/min (70-130); Calcium 8.3 mg/dL (7.8-10.44); Carbon Dioxide 21 mmol/L (22-29); Chloride 106 mmol/L (98-107); Estimated GFR 137; Glucose 106 mg/dL (70-105); Magnesium 1.8 mg/dL (1.6-2.6); Phosphorus 2.9 mg/dL (2.3-4.7); Sodium 137 mmol/L (136-145)
[2022-09-26 08:24] LABS: Troponin I 0.089 ng/mL (< 0.028)
[2022-09-26 08:45] LABS: Band 10 % (5-11); Eosinophils 2 % (0-10); Large Platelets SLIGHT; Lymphocytes 14 % (21-51); MDiff Complete? YES; Metamyelocyte 1 % (0-0); Monocytes 14 % (0-10); Neutrophil 59 % (42-75); Nucleated RBC 1 % (0); Platelet Morphology Comment Appears Adequate; Polychromasia MODERATE = 3-4 cells (100X) (0-2/hpf); Vacuoles SLIGHT
[2022-09-26] MEDS: metroNIDAZOLE 500 MG TAB PO SCH ×3 (08:59→20:47)
[2022-09-26] MEDS: Saccharomyces boulardii 250 MG CAP PO SCH (08:59)
[2022-09-26] MEDS: Divalproex Sodium 250 MG (DR) TAB PO SCH (08:59)
[2022-09-26] MEDS: risperiDONE 1 MG TAB PO SCH (09:00)
[2022-09-26] MEDS: Famotidine 20 MG TAB PO SCH ×2 (09:00→20:47)
[2022-09-26] MEDS ORDERED: Ciprofloxacin 500 MG TAB PO SCH (09:00)
[2022-09-26] MEDS: Apixaban 5 MG TAB PO SCH ×2 (09:00→20:47)
[2022-09-27] MEDS: Acetaminophen 500 MG TAB PO SCH ×3 (00:01→12:15)
[2022-09-27] MEDS: traMADol HCl 50 MG TAB PO SCH ×3 (00:02→12:15)
[2022-09-27] MEDS: Famotidine 20 MG TAB PO SCH (08:42)
[2022-09-27] MEDS: Apixaban 5 MG TAB PO SCH (08:42)
[2022-09-27] MEDS: Saccharomyces boulardii 250 MG CAP PO SCH (08:42)
[2022-09-27] MEDS: metroNIDAZOLE 500 MG TAB PO SCH (08:42)
[2022-09-27] MEDS: risperiDONE 1 MG TAB PO SCH (08:42)
[2022-09-27] MEDS: Divalproex Sodium 250 MG (DR) TAB PO SCH (08:42)
[2022-09-27] MEDS ORDERED: Albuterol Sulfate 2.5 mg/3 ml Neb NEB SCH ×2 (10:00→12:30)
[2022-09-27] MEDS ORDERED: Albuterol 200 PUFF (6.7GM INHALER) INH SCH ×2 (11:00→15:00)
[2022-09-27] MEDS ORDERED: Iopamidol-370 76% 500 ML 1 ML ONE (11:54)
[2022-09-27] MEDS ORDERED: Albuterol 200 PUFF (6.7GM INHALER) INH PRN (11:59)
[2022-09-27 13:04] VITALS: BP 142/91; TEMP 98.6
[2022-10-02] MEDS ORDERED: Apixaban 5 MG TAB PO SCH (09:00)
== END 2022-09-27 15:11 | disposition home or self-care (01) | DRG 957 ==
LOC: ERS 03:56 → SDC 05:18 → CCU 05:19 → EEVIPCON 05:19 → UNDOADMIN 05:19 → SURG B 09-22 19:23 → SJJU 09-23 00:59
PROVIDERS: ADMIT Surgery; ATTEND Surgery
PROC: 0DB80ZZ Excision of Small Intestine, Open Approach (ICD-10-PCS; principal; 2022-09-19)
PROC: 0DBN0ZZ Excision of Sigmoid Colon, Open Approach (ICD-10-PCS; 2022-09-19)
PROC: 0BBD0ZZ Excision of Right Middle Lung Lobe, Open Approach (ICD-10-PCS; 2022-09-19)
PROC: 0BQT0ZZ Repair Diaphragm, Open Approach (ICD-10-PCS; 2022-09-19)
PROC: 0BH17EZ Insertion of Endotracheal Airway into Trachea, Via Natural or Artificial Opening (ICD-10-PCS; 2022-09-19)
PROC: 5A1945Z Respiratory Ventilation, 24-96 Consecutive Hours (ICD-10-PCS; 2022-09-19)
PROC: 0D9670Z Drainage of Stomach with Drainage Device, Via Natural or Artificial Opening (ICD-10-PCS; 2022-09-19)
PROC: 02HV33Z Insertion of Infusion Device into Superior Vena Cava, Percutaneous Approach (ICD-10-PCS; 2022-09-19)
PROC: 3E043XZ Introduction of Vasopressor into Central Vein, Percutaneous Approach (ICD-10-PCS; 2022-09-19)
PROC: 0W9930Z Drainage of Right Pleural Cavity with Drainage Device, Percutaneous Approach (ICD-10-PCS; 2022-09-19)
PROC: 30243L1 Transfusion of Nonautologous Fresh Plasma into Central Vein, Percutaneous Approach (ICD-10-PCS; 2022-09-19)
PROC: 30243N1 Transfusion of Nonautologous Red Blood Cells into Central Vein, Percutaneous Approach (ICD-10-PCS; 2022-09-19)
PROC: 30243R1 Transfusion of Nonautologous Platelets into Central Vein, Percutaneous Approach (ICD-10-PCS; 2022-09-19)
PROC: 30243M1 Transfusion of Nonautologous Plasma Cryoprecipitate into Central Vein, Percutaneous Approach (ICD-10-PCS; 2022-09-19)
PROC: 0D1N0Z4 Bypass Sigmoid Colon to Cutaneous, Open Approach (ICD-10-PCS; 2022-09-21)
PROC: 0DHA8UZ Insertion of Feeding Device into Jejunum, Via Natural or Artificial Opening Endoscopic (ICD-10-PCS; 2022-09-21)
DX: S27.2XXA Traumatic hemopneumothorax, initial encounter (principal); J96.00 Acute respiratory failure, unspecified whether with hypoxia or hypercapnia; S36.113A Laceration of liver, unspecified degree, initial encounter; T79.4XXA Traumatic shock, initial encounter; S22.20XA Unspecified fracture of sternum, initial encounter for closed fracture; S36.499A Other injury of unspecified part of small intestine, initial encounter; S36.593A Other injury of sigmoid colon, initial encounter; S36.503A Unspecified injury of sigmoid colon, initial encounter; E87.20 Acidosis, unspecified; N17.9 Acute kidney failure, unspecified; D62 Acute posthemorrhagic anemia; Z20.822 Contact with and (suspected) exposure to COVID-19; W34.00XA Accidental discharge from unspecified firearms or gun, initial encounter; E87.6 Hypokalemia; T79.6XXA Traumatic ischemia of muscle, initial encounter; F31.9 Bipolar disorder, unspecified; E83.39 Other disorders of phosphorus metabolism; E87.5 Hyperkalemia
CPT/HCPCS: 31500; 32551; 36415; 36416; 36430; 36556; 36600; 51702; 71045; 71260; 74018; 74177; 80048; 80053; 80076; 80306; 80307; 81003; 82533; 82550; 82553; 82805; 83605; 83735; 83880; 84100; 84484; 85025; 85610; 85730; 86850; 86900; 86901; 87040; 87070; 87077; 87086; 87149; 87186; 87205; 87811; 88307; 90471; 90715; 93005; 93010; 93306; 93970; 94002; 94003; 94640; 96374; 96375; 97139; A4649; C1713; C1776; G0390; J0171; J0360; J1100; J1170; J1200; J1650; J1720; J1885; J1940; J2250; J2270; J2370; J2405; J2543; J3010; J3475; J3480; J3490; J7030; J7050; J7120; J7620; P9012; P9016; P9035; P9045; P9048; P9059; Q0162; Q9967; S0028; U0002

== ENCOUNTER 2022-11-03 16:17 | Observation (INO) | payer OTHER ==
[~2022-11-03 16:17] MED LIST: GASTROGRAFIN 30 ML BOT ONE; Iopamidol-370 76% 500 ML 1 ML ONE
[2022-11-03] MEDS ORDERED: Ondansetron PF 4 MG/2 ML Vial ONE (17:02)
[2022-11-03] MEDS ORDERED: Ketorolac Tromethamine 30 MG/ML VIAL ONE (17:02)
[2022-11-03 17:19] LABS: Hemoglobin 12.7 g/dL (14.0-18.0); Mean Corpuscular Hemoglobin 25.3 pg (27.0-31.0); Mean Corpuscular Volume 81.5 fl (78.0-98.0); Mean Platelet Volume 8.6 fL (7.4-10.4); Platelet Count 568 10x3/uL (130-400); RBC Distribution Width 17.6 % (11.5-14.5); Red Blood Cell (RBC) Count 5.04 mill/uL (4.70-6.10); White Blood Cell (WBC) Count 17.8 10x3/uL (4.8-10.8)
[2022-11-03 17:24] LABS: Bilirubin Negative (Negative); Blood, Urine Negative (Negative); Clarity Clear (Clear); Glucose, Urine (Dipstick) Normal (Negative); Ketone, Urine Negative (Negative); Leukocyte Negative Leu/uL (Negative); Nitrite Negative (Negative); Protein, Urine (Dipstick) 20 mg/dL (Neg-Trace); Specific Gravity, Urine 1.026 (1.002-1.036); Urobilinogen Normal mg/dL (Less than 2); pH, Urine 7.5 (5.0-9.0)
[2022-11-03 17:41] LABS: Band 13 % (5-11); Eosinophils 3 % (0-10); Hypochromia SLIGHT = 6-15 cells (100X) (0-5/hpf); Lymphocytes 4 % (21-51); MDiff Complete? YES; Monocytes 9 % (0-10); Neutrophil 70 % (42-75); Platelet Morphology Comment Appears Increased; Polychromasia MODERATE = 3-4 cells (100X) (0-2/hpf); Reactive Lymphocytes 1 % (0-10); Stomatocytes SLIGHT = 2-5 cells (100X) (0-1/hpf)
[2022-11-03 17:44] LABS: ALT (SGPT) 25 U/L (8-55); AST (SGOT) 18 U/L (5-34); Albumin 4.1 g/dL (3.5-5.0); Alkaline Phosphatase 100 U/L (40-110); Anion Gap 14 mmol/L (10-20); BUN (Urea Nitrogen) 5 mg/dL (8.9-20.6); Bilirubin, Total 0.4 mg/dL (0.2-1.2); Calc. Creatinine Clearance 0 mL/min (70-130); Calcium 9.9 mg/dL (7.8-10.44); Carbon Dioxide 25 mmol/L (22-29); Chloride 102 mmol/L (98-107); Estimated GFR 130; Globulin 4.7 g/dL (2.4-3.5); Glucose 99 mg/dL (70-105); Lipase 59 U/L (8-78); Potassium 3.9 mmol/L (3.5-5.1); Protein, Total 8.8 g/dL (6.0-8.3); Sodium 137 mmol/L (136-145)
[2022-11-03] MEDS ORDERED: Piperacillin/Tazobactam 3.375 GM VIAL ONE (17:47)
[2022-11-03] MEDS ORDERED: Piperacillin/Tazobactam 4.5 GM VIAL ONE (17:50)
[2022-11-03] MEDS ORDERED: Ipratropium/Albuterol 3 ML NEB NEB PRN (20:10)
[2022-11-03] MEDS ORDERED: Ondansetron PF 4 MG/2 ML Vial IVP PRN (20:10)
[2022-11-03] MEDS ORDERED: TETANUS, DIPHTHERIA TOX,ADULT (TDVAX) 0.5 ML VIAL IM ONE (20:10)
[2022-11-03] MEDS ORDERED: Cyclobenzaprine 10 MG TAB PO PRN (20:13)
[2022-11-03] MEDS ORDERED: traMADol HCl 50 MG TAB PO PRN (20:13)
[2022-11-03] MEDS ORDERED: Morphine 4 MG/ML VIAL SLOW IVP PRN (20:17)
[2022-11-03] MEDS: Famotidine/PF 20 mg/2ml Vial SLOW IVP SCH (22:09)
[2022-11-03] MEDS: Piperacillin/Tazobactam 3.375 GM in Sodium Chloride 0.9% 100 ML IVPB SCH (22:10)
[2022-11-03] MEDS: Sodium Chloride 0.9% 1,000 ML IV SCH (22:10)
[2022-11-03] MEDS: Senokot S 8.6-50 MG TAB PO SCH (22:10)
[2022-11-03 22:24] VITALS: BMI 34.1
[2022-11-04] MEDS: Acetaminophen 500 MG TAB PO SCH ×3 (00:39→12:12)
[2022-11-04] MEDS: traMADol HCl 50 MG TAB PO SCH ×3 (00:39→12:12)
[2022-11-04] MEDS: Piperacillin/Tazobactam 3.375 GM in Sodium Chloride 0.9% 100 ML IVPB SCH (05:41)
[2022-11-04 06:50] LABS: #Eosinphils 0.7 thou/uL (0.0-0.7); #Monocytes 1.5 thou/uL (0.11-0.59); %Basophils 0.1 % (0.0-1.0); %Eosinophils 5.2 % (0.0-10.0); %Lymphocytes 15.1 % (21.0-51.0); %Monocytes 11.6 % (0.0-10.0); Hemoglobin 11.2 g/dL (14.0-18.0); Mean Corpuscular HGB CONC 32.1 g/dL (32.0-36.0); Mean Corpuscular Hemoglobin 26.5 pg (27.0-31.0); Mean Corpuscular Volume 82.4 fl (78.0-98.0); Mean Platelet Volume 8.5 fL (7.4-10.4); Platelet Count 490 10x3/uL (130-400); RBC Distribution Width 17.1 % (11.5-14.5); Red Blood Cell (RBC) Count 4.24 mill/uL (4.70-6.10); White Blood Cell (WBC) Count 13.2 10x3/uL (4.8-10.8)
[2022-11-04] MEDS ORDERED: Morphine 2 MG/ML VIAL SLOW IVP PRN (07:15)
[2022-11-04] MEDS: Famotidine/PF 20 mg/2ml Vial SLOW IVP SCH (08:36)
[2022-11-04] MEDS: Sodium Chloride 0.9% 1,000 ML IV SCH (08:36)
[2022-11-04] MEDS: Senokot S 8.6-50 MG TAB PO SCH (08:37)
[2022-11-04] MEDS ORDERED: Saccharomyces boulardii 250 MG CAP PO SCH (09:00)
[2022-11-04] MEDS ORDERED: FLU VACC QS2022-23(6MOS UP)/PF 60 MCG/0.5 ML SYRINGE IM ONE (09:00)
[2022-11-04] MEDS ORDERED: Polyethylene Glycol 3350 17 GM Packet PO SCH (09:00)
[2022-11-04] MEDS ORDERED: Amoxicillin/Potassium Clav 875 MG TAB PO SCH (14:30)
[2022-11-04 14:45] VITALS: BP 129/88; TEMP 98.1
[2022-11-04] MEDS ORDERED: metroNIDAZOLE 500 MG TAB PO SCH (15:00)
[2022-11-04] MEDS ORDERED: Ciprofloxacin 500 MG TAB PO SCH (20:00)
[2022-11-04] MEDS ORDERED: Lisinopril 10 MG TAB PO SCH (21:00)
[2022-11-05] MEDS ORDERED: Amoxicillin/Potassium Clav 875 MG TAB PO SCH (06:00)
== END 2022-11-04 15:15 | disposition home or self-care (01) ==
LOC: ERS 16:17 → MSONC 20:13
PROVIDERS: ADMIT Surgery; ATTEND Surgery
DX: R10.31 Right lower quadrant pain (principal); J45.909 Unspecified asthma, uncomplicated; Z90.49 Acquired absence of other specified parts of digestive tract; Z20.822 Contact with and (suspected) exposure to COVID-19
CPT/HCPCS: 36415; 74177; 80053; 81003; 83605; 83690; 85025; 87040; 87086; 96361; 96365; 96366; 96375; 96376; G0378; J1885; J2405; J2543; J3490; J7050; Q9963; Q9967; S0028; U0003; U0005

== ENCOUNTER 2022-11-12 11:03 | Inpatient (IN) | payer OTHER ==
[2022-11-12 11:39] LABS: #Eosinphils 0.5 thou/uL (0.0-0.7); #Lymphocytes 2.3 thou/uL (1.20-3.40); #Monocytes 1.2 thou/uL (0.11-0.59); #Neutrophils 15.8 thou/uL (1.40-6.50); %Basophils 0.2 % (0.0-1.0); %Eosinophils 2.7 % (0.0-10.0); %Lymphocytes 11.5 % (21.0-51.0); %Monocytes 6.1 % (0.0-10.0); %Neutrophils 79.5 % (42.0-75.0); Mean Corpuscular HGB CONC 32.5 g/dL (32.0-36.0); Mean Corpuscular Hemoglobin 25.9 pg (27.0-31.0); Mean Corpuscular Volume 79.5 fl (78.0-98.0); Mean Platelet Volume 8.6 fL (7.4-10.4); Platelet Count 519 10x3/uL (130-400); Red Blood Cell (RBC) Count 5.04 mill/uL (4.70-6.10); White Blood Cell (WBC) Count 19.9 10x3/uL (4.8-10.8)
[2022-11-12 11:59] LABS: ALT (SGPT) 39 U/L (8-55); AST (SGOT) 28 U/L (5-34); Alkaline Phosphatase 78 U/L (40-110); Anion Gap 13 mmol/L (10-20); BUN (Urea Nitrogen) 8 mg/dL (8.9-20.6); Bilirubin, Total 0.2 mg/dL (0.2-1.2); Calc. Creatinine Clearance 0 mL/min (70-130); Calcium 9.6 mg/dL (7.8-10.44); Carbon Dioxide 22 mmol/L (22-29); Chloride 105 mmol/L (98-107); Estimated GFR 133; Globulin 4.3 g/dL (2.4-3.5); Glucose 99 mg/dL (70-105); Potassium 4.2 mmol/L (3.5-5.1); Protein, Total 8.3 g/dL (6.0-8.3); Sodium 136 mmol/L (136-145)
[2022-11-12 13:06] LABS: Bilirubin Negative (Negative); Blood, Urine Negative (Negative); Clarity Clear (Clear); Glucose, Urine (Dipstick) Normal (Negative); Ketone, Urine Negative (Negative); Leukocyte Negative Leu/uL (Negative); Nitrite Negative (Negative); Protein, Urine (Dipstick) Negative (Neg-Trace); Specific Gravity, Urine 1.017 (1.002-1.036); Urobilinogen Normal mg/dL (Less than 2)
[2022-11-12] MEDS ORDERED: Iopamidol 370 76% 100 ML VIAL ONE (14:38)
[2022-11-12] MEDS ORDERED: TETANUS, DIPHTHERIA TOX,ADULT (TDVAX) 0.5 ML VIAL IM ONE (14:55)
[2022-11-12] MEDS ORDERED: Dextrose 50% Abboject 50 ML SYRINGE SLOW IVP PRN (14:55)
[2022-11-12] MEDS ORDERED: Morphine 4 MG/ML VIAL SLOW IVP PRN (14:55)
[2022-11-12] MEDS ORDERED: Dextrose 5% in Water 1,000 ML IV PRN (14:55)
[2022-11-12] MEDS ORDERED: Ipratropium/Albuterol 3 ML NEB NEB PRN (14:55)
[2022-11-12] MEDS ORDERED: hydrALAZINE 20 MG/ML VIAL SLOW IVP PRN (14:55)
[2022-11-12] MEDS ORDERED: Ondansetron PF 4 MG/2 ML Vial IVP PRN (14:55)
[2022-11-12] MEDS ORDERED: Heparin 25,000 units/D5W 500 ML IVPB SCH (15:00)
[2022-11-12] MEDS ORDERED: Sodium Chloride 0.9% 1,000 ML IV SCH (15:00)
[2022-11-12] MEDS ORDERED: Heparin 10,000 UNITS/ 10 ML VIAL SLOW IVP SCH (15:00)
[2022-11-12] MEDS ORDERED: traMADol HCl 50 MG TAB PO PRN (15:13)
[2022-11-12] MEDS ORDERED: Acetaminophen 500 MG TAB PO PRN (15:13)
[2022-11-12] MEDS ORDERED: Meropenem 1 GM in Sodium Chloride 0.9% 100 ML IVPB SCH ×2 (15:15→22:00)
[2022-11-12 16:32] VITALS: BMI 35.1
[2022-11-12] MEDS: Famotidine/PF 20 mg/2ml Vial SLOW IVP SCH (20:31)
[2022-11-12] MEDS: Apixaban 5 MG TAB PO SCH (20:31)
[2022-11-13] MEDS: Meropenem 1 GM in Sodium Chloride 0.9% 100 ML IVPB SCH ×4 (00:12→23:58)
[2022-11-13 07:21] LABS: Hemoglobin 12.7 g/dL (14.0-18.0); Mean Corpuscular HGB CONC 31.7 g/dL (32.0-36.0); Mean Corpuscular Hemoglobin 25.4 pg (27.0-31.0); Platelet Count 476 10x3/uL (130-400); RBC Distribution Width 18.2 % (11.5-14.5); Red Blood Cell (RBC) Count 5.02 mill/uL (4.70-6.10); White Blood Cell (WBC) Count 15.5 10x3/uL (4.8-10.8)
[2022-11-13 07:50] LABS: Anion Gap 17 mmol/L (10-20); BUN (Urea Nitrogen) 7 mg/dL (8.9-20.6); Calc. Creatinine Clearance 210 mL/min (70-130); Calcium 9.9 mg/dL (7.8-10.44); Carbon Dioxide 21 mmol/L (22-29); Chloride 101 mmol/L (98-107); Estimated GFR 134; Glucose 107 mg/dL (70-105); Magnesium 1.7 mg/dL (1.6-2.6); Phosphorus 4.1 mg/dL (2.3-4.7); Potassium 4.1 mmol/L (3.5-5.1); Sodium 135 mmol/L (136-145)
[2022-11-13 07:52] LABS: Band 6 % (5-11); Eosinophils 2 % (0-10); Lymphocytes 18 % (21-51); MDiff Complete? YES; Monocytes 4 % (0-10); Myelocyte 1 % (0-0); Neutrophil 68 % (42-75); Platelet Morphology Comment Appears Increased; RBC Morphology Normal; Reactive Lymphocytes 1 % (0-10)
[2022-11-13] MEDS: Famotidine/PF 20 mg/2ml Vial SLOW IVP SCH ×2 (09:05→20:29)
[2022-11-13] MEDS: Apixaban 5 MG TAB PO SCH ×2 (09:05→20:30)
[2022-11-14 06:03] LABS: #Eosinphils 0.4 thou/uL (0.0-0.7); #Lymphocytes 2.1 thou/uL (1.20-3.40); #Monocytes 1.3 thou/uL (0.11-0.59); #Neutrophils 7.6 thou/uL (1.40-6.50); %Basophils 0.3 % (0.0-1.0); %Eosinophils 3.7 % (0.0-10.0); %Lymphocytes 18.4 % (21.0-51.0); %Monocytes 11.1 % (0.0-10.0); %Neutrophils 66.6 % (42.0-75.0); Hemoglobin 12.5 g/dL (14.0-18.0); Mean Corpuscular HGB CONC 31.9 g/dL (32.0-36.0); Mean Corpuscular Volume 81.4 fl (78.0-98.0); Mean Platelet Volume 9.3 fL (7.4-10.4); Platelet Count 416 10x3/uL (130-400); RBC Distribution Width 18.2 % (11.5-14.5); White Blood Cell (WBC) Count 11.4 10x3/uL (4.8-10.8)
[2022-11-14 08:20] VITALS: BP 120/72; TEMP 98.3
[2022-11-14] MEDS: Apixaban 5 MG TAB PO SCH (08:44)
[2022-11-14] MEDS: Meropenem 1 GM in Sodium Chloride 0.9% 100 ML IVPB SCH (08:44)
[2022-11-14] MEDS: Famotidine/PF 20 mg/2ml Vial SLOW IVP SCH (08:44)
[2022-11-14] MEDS ORDERED: Amoxicillin/Potassium Clav 875 MG TAB PO SCH (21:00)
[2022-11-15] MEDS ORDERED: Saccharomyces boulardii 250 MG CAP PO SCH (09:00)
== END 2022-11-14 12:20 | disposition home or self-care (01) | DRG 392 ==
LOC: ERS 11:03 → SURG A 15:39 → OBSVTOIN 11-13 10:06
PROVIDERS: ADMIT Surgery; ATTEND Surgery
DX: R10.9 Unspecified abdominal pain (principal); I82.411 Acute embolism and thrombosis of right femoral vein; D72.829 Elevated white blood cell count, unspecified; Z90.49 Acquired absence of other specified parts of digestive tract
CPT/HCPCS: 36415; 71045; 74177; 80048; 80053; 81003; 83605; 83690; 83735; 84100; 85025; 86140; 87040; 96365; 96375; 96376; G0378; J2185; J2405; J3490; Q9967; S0028

== ENCOUNTER 2023-02-11 16:37 | Emergency (ER) | payer OTHER ==
[2023-02-11] MEDS ORDERED: Ipratropium/Albuterol 3 ML NEB ONE (20:23)
== END 2023-02-11 21:33 | disposition home or self-care (01) ==
LOC: ERS 16:37
DX: R06.02 Shortness of breath (principal)
CPT/HCPCS: 71045; J7620